=== PATIENT | female | born 1935 | race Caucasian/White ===

== ENCOUNTER 2016-12-28 01:17 | Inpatient (IN) | payer MEDICARE ==
[2016-12-28 02:00] LABS: #Basophils 0.1 thou/uL (0.0-0.2); #Eosinphils 0.2 thou/uL (0.0-0.7); #Lymphocytes 2.6 thou/uL (1.20-3.40); #Monocytes 0.6 thou/uL (0.11-0.59); %Basophils 1.4 % (0.0-1.0); %Eosinophils 2.7 % (0.0-10.0); %Lymphocytes 34.5 % (21.0-51.0); %Monocytes 8.3 % (0.0-10.0); Hematocrit 40.4 % (36.0-47.0); White Blood Cell (WBC) Count 7.5 thou/uL (4.8-10.8)
[2016-12-28 02:33] LABS: Troponin I Less than 0.010 ng/mL (< 0.028)
[2016-12-28 03:12] LABS: ALT (SGPT) 22 U/L (8-55); AST (SGOT) 41 U/L (5-34); Alkaline Phosphatase 77 U/L (40-150); Anion Gap 15 mmol/L (10-20); BUN (Urea Nitrogen) 15 mg/dL (9.8-20.1); Bilirubin, Total 0.2 mg/dL (0.2-1.2); CK (CPK) 75 U/L (29-168); Calc. Creatinine Clearance 0 mL/min (70-130); Calcium 9.7 mg/dL (7.8-10.44); Carbon Dioxide 22 mmol/L (23-31); Chloride 106 mmol/L (98-107); Estimated GFR-MDRD 59; Globulin 3.4 g/dL (2.4-3.5); Magnesium 2.6 mg/dL (1.6-2.6); Protein, Total 7.6 g/dL (6.0-8.3)
[2016-12-28] MEDS ORDERED: Ondansetron HCl/PF 4 MG/2 ML Vial IVP PRN (04:08)
[2016-12-28] MEDS ORDERED: Acetaminophen 325 MG TAB PO PRN (04:08)
[2016-12-28] MEDS ORDERED: Ondansetron ODT 4 MG TAB SL PRN (04:08)
[2016-12-28] MEDS ORDERED: Enoxaparin Sodium 60 MG/0.6 ML SYRINGE SC SCH (04:30)
[2016-12-28 05:09] LABS: Troponin I Less than 0.010 ng/mL (< 0.028)
[2016-12-28] MEDS ORDERED: Lorazepam 0.5 MG TAB PO PRN (05:40)
--- NOTE | 2016-12-28 05:40 | PDOC.EVN ---
Event Note - Event Note Event Note: [id number] H&P Dictated 1. Afib rvr 2. GERD 3. Hypothyroidism Plan: see orders
[2016-12-28 08:21] LABS: Troponin I 0.016 ng/mL (< 0.028)
[2016-12-28] MEDS ORDERED: FLU VACC TS2017-18 (>65YR) 0.5 ML SYRINGE IM ONE (09:00)
[2016-12-28] MEDS ORDERED: TOLTERODINE TARTRATE 2 MG PO SCH (09:00)
[2016-12-28] MEDS ORDERED: Fluticasone Propionate Nasal Spray 16 gm Bottle NASAL SCH (09:00)
[2016-12-28] MEDS ORDERED: Aspirin 325 MG TAB PO SCH (09:00)
[2016-12-28] MEDS: TROSPIUM 20 MG TABLET PO SCH ×2 (09:03→20:51)
[2016-12-28] MEDS: Thyroid,Pork 90 MG TAB PO SCH (09:03)
[2016-12-28] MEDS: Gabapentin 300 MG CAP PO SCH ×2 (09:04→20:51)
[2016-12-28] MEDS: Aspirin 325 MG TAB PO SCH (09:04)
--- NOTE | 2016-12-28 09:41 | RAD ---
RADIOGRAPH CHEST 1 VIEW: HISTORY: 81-year-old female with acute chest pain. FINDINGS: There are no air space densities, pulmonary edema, pneumothorax, or cardiomegaly. The lateral costo phrenic angles are sharp. IMPRESSION: No acute cardiopulmonary findings. cody [] POS: [facility]
--- NOTE | 2016-12-28 10:47 | PDOC.EVN ---
Event Note - Event Note Event Note: Patient seen and examined, has converted back to NSR. Ok to transfer to telemetry, defer anticoagulation to cardiology, [id number] likely indicative of needing anticoagulation vs antiplatelet, will await final input from cardio. Transfer to telemetry for now, no other changes in plan. Further management per consultants. Case and plan d/w patient at length, she understands and agrees with this plan.
--- NOTE | 2016-12-28 13:56 | HP ---
DATE OF ADMISSION: 12/28/2016 CHIEF COMPLAINT: Palpitations, chest pain. HISTORY OF PRESENT ILLNESS: The patient is an 81 years old female with past medical history of hypo thyroidism, GERD, came to the ER complaining of palpitations. The patient felt her heart beating to o fast and she felt chest pain and dizziness also as if she is going to pass out, chest pain is subs ternal tightness kind of pain, 7/10, currently resolved. No aggravating factors, no relieving facto rs. Also had some dyspnea and also had nausea, the whole symptoms lasted for a few minutes, the pat addie came to the ER. Upon ER arrival, the patient was found to be in atrial fibrillation with RVR w ith heart rate around 140, so patient was given IV Cardizem push and the Cardizem drip was started. The patient's chest pain did resolve at this time. Following EKG as the heart rate improved, showe d some questionable ST elevations. ED physician did speak to the occupational rehabilitation aide, Dr. Álvarez, who recomm ended admission and recommended low dose of Lovenox. The patient denies any chest pain at this time . Denies any other complaints. PAST MEDICAL HISTORY: As per HPI. PAST SURGICAL HISTORY: Hysterectomy. SOCIAL HISTORY: Denies smoking. Drinks of wine at nighttime. Denies any drugs. FAMILY HISTORY: Positive for heart problems. MEDICATIONS: Reviewed. ALLERGIES: CODEINE, SULFA. REVIEW OF SYSTEMS: Constitutional: Denies any fever, denies any chills. Eyes: Denies any vision problems. Ears: Denies any hearing loss. Neck: Denies any neck pain. Cardiovascular system: Po sitive for chest pain. Positive for palpitations. Respiratory system: Positive for dyspnea. Cran ial nerve system: Positive for dizziness. Psychiatric: Denies anxiety. Integumentary: Denies an y rash. Musculoskeletal: Denies any joint deformities. All other review of systems are reviewed a nd are negative. PHYSICAL EXAMINATION: CONSTITUTIONAL/VITAL SIGNS: At the time of H and P performed, blood pressure is 101/50, afebrile, p ulse rate is 70, respiratory rate 18, pulse ox 97% on room air. GENERAL: This patient appears comfortable. HEENT: Pupils equal, round, and reactive to light. Anterior nares patent. Teeth intact. Tongue i s moist. NECK: Supple. No JVD. CARDIOVASCULAR SYSTEM: S1, S2 present. Regular rate and rhythm, currently in sinus rhythm. No mur murs, no rubs, no gallops. RESPIRATORY SYSTEM: No wheezing, no rhonchi. Breath sounds bilaterally. GASTROINTESTINAL: Abdomen is soft, nontender, no guarding, no organomegaly, no masses felt. MUSCULOSKELETAL: No edema. INTEGUMENTARY: No obvious rashes seen. PSYCHIATRIC: Mood is appropriate at this time. LABORATORY DATA: At the time of H and P performed sodium 139, potassium 3.9, mag 2.6, BUN 15, creat inine 0.9. CK-MB 1.5, troponin less than 0.010. White count 7.5, hemoglobin 13.7, and platelet cou nt is 272. EKG: Positive for mild ST elevation seen in lead II and III. Chest x-ray no obvious in filtrates seen. ASSESSMENT AND PLAN: The patient is an 81 years old female. 1. Atrial fibrillation with rapid ventricular response, paroxysmal. The patient said she is having these symptoms and that is being seen by Dr. Constantino as an outpatient also. Currently, denies any p ain ar this time. Provide heart rate control. Continue Cardizem drip and patient to receive a dose of Lovenox. Continue Lovenox at home. We will consult Cardiology to evaluate the patient. 2. Chest pain, resolved. Plan to check cardiac enzymes, p.r.n. pain medications. 3. History of hypothyroidism. Continue home medication. 4. Nausea, p.r.n. antiemetics. 5. History of neuropathy. Continue gabapentin. 6. History of gastroesophageal reflux disease. Continue PPI. The case was discussed in detail with the patient. The patient is FULL CODE.
--- NOTE | 2016-12-28 20:00 | CON ---
DATE OF SERVICE: 12/28/2016 PRIMARY MERCHANDISE COMPLAINT ADJUSTER: Dr. Constantino. REFERRING PHYSICIAN: Dr. Arnold. REASON FOR CONSULTATION: Palpitations. HISTORY OF PRESENT ILLNESS: Ms. Wong is an 81-year-old female, who follows with Dr. Col mak, recently underwent stress testing and other cardiac workup, which was negative for evidence of obstructive coronary artery disease. She has recently \\\\"felt differently\\\\" and has been aware ranjeet t something may be wrong but could not put her finger on what it was. This prompted a cardiac evalu ation, which appeared to be negative with normal LV function and negative stress testing. She repor ts recent onset of unilateral eye dryness and visual changes that prompted an evaluation by her opht halmologist and evaluation showed possible evidence of recent TIA. She saw her primary care physici an, Dr. Edwards, who has ordered some testing for a more detailed workup. On presentation today to the emergency department, she was found to be in rapid atrial fibrillation with rates around 140 per minute. With rate control of her atrial fibrillation, her chest tightness that was present did resolve. There were some changes in her EKG. PAST MEDICAL HISTORY: 1. GERD. 2. Hypothyroidism. 3. Possible recent TIA. PAST SURGICAL HISTORY: Hysterectomy. ALLERGIES: CODEINE and SULFA. SOCIAL HISTORY: She denies tobacco use, ethanol abuse, illicit or recreational drug use. She does drink a glass of wine at night time. FAMILY HISTORY: Negative with respect to premature atherosclerosis. Her mother did have a history of atrial fibrillation and CVA. CURRENT MEDICATIONS: Include: 1. Aspirin 325 mg daily. 2. Dexilant 60 mg daily. 3. Flonase 1 spray each nostril daily. 4. Gabapentin 300 mg b.i.d. 5. Ophiem Thyroid 90 mg daily. 6. Ambien 10 mg at bedtime for insomnia. REVIEW OF SYSTEMS: As per the history of present illness. Remainder of 12 system review is negativ e. PHYSICAL EXAMINATION: VITAL SIGNS: Blood pressure 114/49, pulse 81 and regular, respiratory rate 18 and nonlabored, tempe rature 99.0, oxygen saturation 98% on room air. GENERAL: This is a well-developed, well-nourished 81-year-old female, in no acute distres s. She is alert and oriented x4. She answers questions appropriately. HEENT: Head was atraumatic, normocephalic. Pupils were equally round and reactive. Sclerae and co njunctivae are clear. There are no oral lesions. NECK: Supple, no JVD, thyromegaly, carotid bruits. CHEST: Symmetrical inspiration and expiration. HEART: Irregularly irregular with no murmur, S3, S4. PMI is nondisplaced, not enlarged. LUNGS: Clear to auscultation in all mitchell. No adventitious sounds appreciated. ABDOMEN: Soft, nontender, nondistended without mass or organomegaly. Bowel sounds are present in a ll 4 quadrants. No flank bruits auscultated. EXTREMITIES: 2+ pulses noted bilaterally in the upper and lower extremities, strength 5/5 bilateral ly. There is no clubbing, cyanosis or edema. NEUROLOGIC: Grossly intact. No focal motor deficits appreciated. DATABASE: EKG reveals atrial fibrillation with rapid ventricular response. LABORATORY DATA: CBC reveals a white count of 7, hemoglobin and hematocrit of 13 and 40, platelet c ount 272,000. Differential white blood cells normal. Red cell indices normocytic. Chemistries rev eal normal electrolytes, BUN and creatinine 15 and 0.9, GFR is estimated 59, glucose 142. LFTs are within normal limits. Serial cardiac enzymes were normal. Her TSH was normal. ASSESSMENT: 1. New onset atrial fibrillation with rapid ventricular response, currently rate controlled. 2. Recent transient ischemic attack. 3. Hypothyroidism, adequately replaced. 4. Gastroesophageal reflux disease, on therapy. RECOMMENDATIONS: 1. From a cardiac standpoint, she is stable, she is currently rate controlled. I would recommend X arelto 20 mg daily for stroke risk reduction as her CHADs score is 3 (age, recent TIA). 2. I will monitor her rhythm and defer to Dr. Constantino regarding his wishes for longer term therapy m edically versus more prompt electrophysiology evaluation for potential ablation therapy. I appreciate the opportunity to participate.
[2016-12-28] MEDS ORDERED: Zolpidem Tartrate 5 MG TAB PO SCH (21:00)
[2016-12-29 06:07] LABS: #Eosinphils 0.2 thou/uL (0.0-0.7); #Lymphocytes 1.3 thou/uL (1.20-3.40); #Monocytes 0.3 thou/uL (0.11-0.59); #Neutrophils 3.7 thou/uL (1.40-6.50); %Basophils 0.3 % (0.0-1.0); %Eosinophils 3.2 % (0.0-10.0); %Lymphocytes 23.8 % (21.0-51.0); Mean Platelet Volume 6.6 fL (7.4-10.4); Red Blood Cell (RBC) Count 3.39 mill/uL (4.20-5.40); White Blood Cell (WBC) Count 5.5 thou/uL (4.8-10.8)
[2016-12-29 06:10] LABS: Hematocrit 33.7 % (36.0-47.0)
[2016-12-29 06:25] VITALS: BMI 24.1
[2016-12-29 06:36] LABS: Anion Gap 12 mmol/L (10-20); BUN (Urea Nitrogen) 17 mg/dL (9.8-20.1); Calc. Creatinine Clearance 67 mL/min (70-130); Carbon Dioxide 23 mmol/L (23-31); Chloride 108 mmol/L (98-107); Estimated GFR-MDRD 85
[2016-12-29] MEDS: TROSPIUM 20 MG TABLET PO SCH ×2 (09:40→09:41)
[2016-12-29] MEDS: Gabapentin 300 MG CAP PO SCH (09:40)
[2016-12-29] MEDS: Aspirin 325 MG TAB PO SCH (09:40)
[2016-12-29] MEDS: Thyroid,Pork 90 MG TAB PO SCH (10:05)
[2016-12-29 11:08] VITALS: TEMP 97.9
[2016-12-29 11:13] VITALS: BP 104/54
--- NOTE | 2016-12-29 11:30 | PDOC.PN ---
- Subjective Encounter Start Date: 12/29/16 Encounter Start Time: 11:27 Ms. Wong does not have any complaints. She denies chest pain or shortness of breath. - Objective MAR Reviewed: Yes Vital Signs & Weight: Vital Signs (12 hours) Temp Pulse Resp BP BP Pulse Ox 12/29/16 08:00 97.9 F 71 16 104/54 L 96 12/29/16 03:54 98.3 F 68 20 114/56 L 94 L Weight Weight 140 lb 8 oz I&O: 12/28/16 12/29/16 12/30/16 06:59 06:59 06:59 Intake Total 50 530 Output Total 800 Balance 50 -270 Result Diagrams: 12/29/16 05:32 12/29/16 05:32 Phys Exam - Physical Examination HEENT: PERRLA Respiratory: no wheezing, no rales, no rhonchi, clear to auscultation bilateral Cardiovascular: RRR, no significant murmur Gastrointestinal: soft, non-tender, positive bowel sounds Musculoskeletal: no edema Dx/Plan (1) Atrial fibrillation Code(s): I48.91 - UNSPECIFIED ATRIAL FIBRILLATION Status: Acute (2) Hypothyroidism Code(s): E03.9 - HYPOTHYROIDISM, UNSPECIFIED Status: Acute - Plan * AFIB- she has converted to sinus * Hypothyroidism- he is clinically euthyroid * Awaiting recommendation from Dr. Constantino..
--- NOTE | 2016-12-29 13:25 | PDOC.CTH ---
Cardiology Progress Note - Subjective She is doing better. Feels back to normal. - Objective Vital Signs Temp Pulse Resp BP BP Pulse Ox 12/29/16 08:00 97.9 F 71 16 104/54 L 96 12/29/16 03:54 98.3 F 68 20 114/56 L 94 L Weight 140 lb 8 oz 12/28/16 12/29/16 12/30/16 06:59 06:59 06:59 Intake Total 50 530 Output Total 800 Balance 50 -270 - Physical Examination General/Neuro: alert & oriented x3, NAD Neck: no JVD present Lungs: CTA, unlabored respirations Heart: RRR Abdomen: NT/ND Extremities: other: (no edema) - Telemetry Telemetry Rhythm: NSR - Labs Result Diagrams: 12/29/16 05:32 12/29/16 05:32 Troponin/CKMB CK-MB (CK-2) 1.5 ng/mL (0-6.6) 12/28/16 01:45 Troponin I 0.016 ng/mL (< 0.028) 12/28/16 07:42 - Assessment/Plan 1. Proxysmal afib 2. Normal LV function. 3. TIA recently PLAN: - Will start on flecainide and low dose BB. - Gave her choice of anticoagulants she picks Eliquis as her is taking this and feels comfortable with it. - Will start Eliquis 2.5 mg BID due to her age and weight. - She may be discharged home from cardiac perspective. - Follow up in 1 month with pre clinic CBC, BMP. - Negative PET scan 2 months ago.
--- NOTE | 2016-12-29 14:55 | DIS ---
DATE OF ADMISISON: 12/28/2016 DATE OF DISCHARGE: 12/29/2016 PRIMARY CARE PHYSICIAN: Dr. Michael Ham. DISCHARGE DISPOSITION: Home. PRIMARY DISCHARGE DIAGNOSES: 1. Atrial fibrillation with rapid ventricular response. 2. History of hypothyroidism. DISCHARGE MEDICATIONS: Include Eliquis 2.5 mg twice daily, aspirin 81 mg daily, Dexilant 60 mg ernestine y, Flonase nasal spray 1 spray in each naris daily, gabapentin 300 mg twice daily, lorazepam 0.5 mg as needed, metoprolol 12.5 mg twice a day, [place] Thyroid 60 mg daily, Zolpidem 10 mg at bedtime, To lterodine 2 mg twice a day as well flecainide 50 mg twice a day. CODE STATUS: FULL CODE. ALLERGIES: SULFA and CODEINE. HOSPITAL COURSE: Ms. Wong is a pleasant 81-year-old female that presented to the emergency room w ith complaints of palpitations and some chest pain. She was found to be in atrial fibrillation with rapid ventricular response. She was placed on a Cardizem drip, admitted and she converted back to sinus rhythm. She was seen by Dr. Constantino, her crank hand who recommended placing her on flecainid e as well as a low dose of metoprolol and Eliquis as her CHADS-VASc score was approximately 3. She had an uneventful hospital course and was subsequently able to be discharged home on 12/29/2016 and to follow up with Dr. Constantino in approximately one month.
[2016-12-29] MEDS ORDERED: Fluticasone Propionate Nasal Spray 16 gm Bottle NASAL SCH (21:00)
[2016-12-29] MEDS ORDERED: Metoprolol Tartrate 25 MG TAB PO SCH (21:00)
[2016-12-29] MEDS ORDERED: Apixaban 5 MG TAB PO SCH (21:00)
== END 2016-12-29 15:38 | disposition home or self-care (01) | DRG 310 ==
LOC: ERS 01:17 → IMCU/EMU 02:47 → 2NO 13:35
PROVIDERS: ADMIT Internal Medicine; ATTEND Internal Medicine
DX: I48.0 Paroxysmal atrial fibrillation (principal); G62.9 Polyneuropathy, unspecified; E03.9 Hypothyroidism, unspecified; K21.9 Gastro-esophageal reflux disease without esophagitis; Z88.5 Allergy status to narcotic agent; Z88.2 Allergy status to sulfonamides; Z79.01 Long term (current) use of anticoagulants; Z79.82 Long term (current) use of aspirin; Z86.73 Personal history of transient ischemic attack (TIA), and cerebral infarction without residual deficits
CPT/HCPCS: 36415; 71010; 80048; 80053; 82553; 83735; 84443; 84484; 85025; 90471; 90682; 93005; 96365; 96376; G0008; J7050; Q2036

== ENCOUNTER 2017-02-24 12:00 | Inpatient (IN) | payer MEDICARE ==
[2017-02-24 12:39] VITALS: BMI 23.1
[2017-02-27] MEDS ORDERED: Midazolam HCl 2 mg/2 ml Vial ONE ×2 (09:26→09:44)
[2017-02-27] MEDS ORDERED: Fentanyl 100 MCG/2 ML VIAL ONE ×3 (09:26→09:55)
[2017-02-27] MEDS ORDERED: Tranexamic Acid 1,000 MG/100 ML BAG ONE ×2 (09:30→12:26)
[2017-02-27] MEDS ORDERED: CEFAZOLIN/Water 2 GM/20 ML SYRINGE ONE (09:30)
[2017-02-27] MEDS ORDERED: Promethazine HCl 25 MG/ML VIAL IM PRN ×2 (09:33→12:28)
[2017-02-27] MEDS ORDERED: Ropivacaine HCl/PF 250 ML in Premix Bag 1 BAG NERVE BLCK SCH (09:33)
[2017-02-27] MEDS ORDERED: Ondansetron HCl/PF 4 MG/2 ML Vial IVP PRN ×2 (09:33→12:28)
[2017-02-27] MEDS ORDERED: HYDROcodone/Acetaminophen 10/325 mg Tablet PO PRN (09:33)
[2017-02-27] MEDS ORDERED: Fentanyl 100 MCG/2 ML VIAL IV PRN (09:33)
[2017-02-27] MEDS ORDERED: Zolpidem Tartrate 5 MG TAB PO PRN (09:33)
[2017-02-27] MEDS ORDERED: traMADol HCl 50 MG TAB PO PRN ×2 (09:33→12:28)
[2017-02-27] MEDS ORDERED: Acetaminophen 325 MG TAB PO PRN (12:28)
[2017-02-27] MEDS ORDERED: diphenhydrAMINE 25 MG CAP PO PRN (12:28)
[2017-02-27] MEDS ORDERED: Fentanyl 100 MCG/2 ML VIAL SLOW IVP PRN (12:28)
[2017-02-27] MEDS ORDERED: Tranexamic Acid 1,000 MG in Sodium Chloride 0.9% 100 ML IVPB SCH (12:30)
[2017-02-27] MEDS ORDERED: Fluticasone Propionate Nasal Spray 16 gm Bottle NASAL PRN (12:32)
[2017-02-27] MEDS ORDERED: Lorazepam 0.5 MG TAB PO PRN (12:32)
--- NOTE | 2017-02-27 12:52 | RAD ---
LEFT KNEE TWO VIEW: History: Total post op knee. FINDINGS: Satisfactory appearance of the total left knee arthroplasty with total resurfacing. No hardware compl ication. IMPRESSION: Satisfactory appearance of left total knee arthroplasty. POS: [facility]
[2017-02-27] MEDS: Ketorolac Tromethamine 30 MG/ML VIAL IVP SCH ×3 (13:47→23:04)
[2017-02-27] MEDS: CEFAZOLIN/Water 2 GM/20 ML SYRINGE SLOW IVP SCH (17:30)
[2017-02-27] MEDS ORDERED: hydrALAZINE 20 MG/ML VIAL SLOW IVP PRN (18:03)
[2017-02-27] MEDS: Sodium Chloride 0.9% 1,000 ML IV SCH ×2 (19:28→21:31)
--- NOTE | 2017-02-27 19:44 | OP ---
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 OPERATIVE PROCEDURE: Revision left total knee arthroplasty (conversion from unicompartmental arthrop lasty to primary total knee arthroplasty) cemented computer-assisted navigated. SURGEON: Anup Graves M.D. BRAIN WAVE TECHNICIAN: Sadiq Bedoya PA-C. ANESTHESIA: General via laryngeal mask airway augmented with indwelling femoral block and a single s hot sciatic block. COMPONENTS USED: QUIQs Triathlon cruciate retaining size 4 cemented femoral component with a size 3 cemented primary tibial baseplate, A29 patellar button and a 9 mm polyethylene fixed b earing insert. TOURNIQUET TIME: 68 minutes at 300 mmHg. FINDINGS: Diffuse polyethylene wear primarily on the tibial implant, periarticular osteophyte format ion, serous effusions, nodular synovitis with hemosiderin staining diffusely. DRAINS: None. SPECIMENS: None. COMPLICATIONS: None. COUNTS: Correct. INDICATIONS FOR SURGERY: Lilia is an 81-year-old white female who has had progressive left knee pain amplified with standing and walking for the last 10 years. She had a unicompartmental medial compar tment arthroplasty performed approximately 12-15 years ago and at this point the arthroplasty has shankar led due to excessive tibial poly wear. PROCEDURE IN DETAIL: After informed consent was obtained in the preoperative holding area, the patie nt was taken to the operative suite and positioned appropriately on the operating table. Left knee w as then prepped and draped in the usual sterile fashion. Tourniquet was placed over the left proxima l thigh and the patient received preoperative antibiotics. Prior to exsanguination, timeout was call ed and all members of surgical team agreed on site, surgeon, and patient. After this was completed, the extremity was then exsanguinated using an Esmarch and the tourniquet was raised to 300 mmHg where it remained for the remainder of the case. A medial parapatellar arthrotomy was then performed usin g the patient's existing incision that was opened in the flexed position. The full arthrotomy and qu ad splitting approach was used. The joint was then encountered. The inferior joint line was then ex posed with blunt dissection and a combination of Bovie electrocautery. A full fat pad ectomy was car ried out. We then used navigation to obtain mechanical axis. Primary cut was used to oscillating sa w in the lateral compartment of the distal femur. We then used osteotomes and saw as a combination t o remove the distal femoral arthroplasty, which was metallic and cemented. Once this was completed, we then turned attention to the femoral sizing with the posterior referencing guide. The 4-in-1 cutt ing guide was then added and the anterior posterior chamfers and anterior and posterior cuts were the n made and completed with osteotomes. The posterior compartment was then completely inspected. Atte ntion was then turned to the tibial preparation. We navigated the tibia as well for total resection of about 7 mm. We then completed this with the curettage to clean out all the plastic and leftover c ement from the tibial baseplate. There are significant wear patterns on it, but did not appear to be loose after tibial preparation baseplate was then sized to be a 3. This temporary baseplate was the n malleted in place and pinned firmly. We trialed after posterior compartment periarticular osteophy tectomies were performed and the PCL was decompressed as well. Happy with finish and full range of m otion and symmetric flexion and extension gaps. We then used the oscillating saw to resect the ponce la intraarticular facets. The patella was A29 button. This was also trialled through full range of motion, it was stable to varus and valgus stressing and posterior and anterior drawer. PCL was reces sed slightly to allow for full extension. Happy with the trials, we then cleaned off the bone meticu lously and added cement beginning with the tibia, which was then malleted into place. The polyethyle ne fixed bearing insert was inserted and the femur was then applied. Leg was placed into extension. All excess cement was curettaged and removed with a [place] elevator and curettage. The patellar butt on was then added. Excess cement was removed. There was also allowed to cure. The wound was then c opiously irrigated with normal saline. Primary closure was accomplished with #2 running Quill stitch to close the arthrotomy and quad tendon split. The subcutaneous layer was then closed with running 0 Quill and subcuticular 3-0 Quill was then placed in the skin and reinforced the cement. Sterile dr farheen was applied. Tourniquet was dropped and the patient had good distal pulses and good pink capi llary refill less than 3 seconds in all digits. Sterile dressing was applied. The procedure was ter minated without any complications and the patient was taken to recovery room in stable condition.
[2017-02-27] MEDS: Senokot S 8.6-50 MG TAB PO SCH (20:35)
[2017-02-27] MEDS: Gabapentin 300 MG CAP PO SCH (20:36)
[2017-02-27] MEDS: Ferrous Gluconate 324 MG TAB PO SCH (20:36)
[2017-02-27] MEDS ORDERED: Aspirin 325 MG TAB PO SCH (21:00)
[2017-02-27] MEDS: Zolpidem Tartrate 5 MG TAB PO PRN (22:58)
--- NOTE | 2017-02-28 00:06 | CON ---
DATE OF CONSULTATION: 02/27/2017 CONSULTING PHYSICIAN: Dr. Anup Graves. REASON FOR ADMISSION: Left total knee arthroplasty. REASON FOR CONSULTATION: Medical management. BRIEF HOSPITAL COURSE: This is an 81-year-old pleasant lady, who was apparently in usual state of he alth came into the hospital for left total knee arthroplasty. She has been admitted for observation post procedure. Right now, pain control is good. I have been consulted for medical management and t o evaluate her for medical management. She has a history of hypothyroidism, GERD, and atrial fibrill ation. The patient right now says the pain control is adequate. She is going to eat her dinner, she is comfortable. She is breathing well. No nausea, no vomiting, no fever, no chills. PAST MEDICAL HISTORY: Significant for paroxysmal atrial fibrillation, vague history of TIA, hypothyr oidism, hypertension, GERD. She was admitted to the hospital last time with atrial fibrillation in , at which point, she was seen by our cardiologists by Dr. Ankush Tellez and Dr. Constantino who had actually was 3 and put her on flecainide, metoprolol for rate control and Eliquis for anticoagu lation. She has been taking all these medications, but right now the PCP is trying to arrange for an other injector assembler of choice. PAST SURGICAL HISTORY: Significant for hysterectomy. ALLERGIES: CODEINE, SULFA. SOCIAL HISTORY: Does not smoke, or do recreational drugs. Drinks occasional glass of wine. MEDICATIONS: Please see MAR. FAMILY HISTORY: Negative for diabetes and hypertension. REVIEW OF SYSTEMS: Significant for no fever, no chills, no headache, no eye pain, no hearing loss, n o appetite, no latencies. No cough, no chest pain, diarrhea, dysuria, or polyuria. No memory or moo d changes. No neck pain. Left leg that is sore at the site of surgery. PHYSICAL EXAMINATION: VITAL SIGNS: Patient is afebrile, pulse is 54, blood pressure is 157/76, breathing comfortably on ro om air. GENERAL: Patient is lying in bed in no apparent distress. HEENT: Atraumatic, normocephalic. Pupils are equal, round, react to light. Extraocular movements i ntact. Mucous membranes moist. NECK: Supple. No JVD. CHEST: Breath sounds heard. No rales or rhonchi. HEART: S1, S2. No murmurs or gallops. ABDOMEN: Soft. EXTREMITIES: Left leg in dressing, otherwise right leg, there are no cyanosis, clubbing, edema. Dis lisa pulses present. NEUROLOGIC: Alert, awake, oriented. No cranial deficits. No sensorimotor deficits. LABORATORY DATA: Potassium is 3.6, creatinine is 0.7. X-ray shows left knee arthroplasty. WBC is 4 .3, hemoglobin is 13. ASSESSMENT AND PLAN: 1. Status post left knee arthroplasty, pain management, follow Primary is planned. 2. Proximal atrial fibrillation. Right now patient appears to be in sinus. The patient continued f lecainide. Hold metoprolol because of the bradycardia and we will restart Eliquis when okay with Ormaya jade. 3. Hypothyroidism. We will start her back on her [place] Thyroid. 4. Hypertension. We will continue p.r.n. medications for now and monitor pulse rate. 5. Gastroesophageal reflux disease stable. 6. We will do Lovenox for deep venous thrombosis prophylaxis. Work with primary and further caring for the patient. Thanks, Dr. Graves in letting me participate in this patient's care.
[2017-02-28] MEDS: CEFAZOLIN/Water 2 GM/20 ML SYRINGE SLOW IVP SCH (01:59)
[2017-02-28] MEDS: Zolpidem Tartrate 5 MG TAB PO PRN ×3 (02:25→23:16)
[2017-02-28 05:32] LABS: Hematocrit 34.8 % (36.0-47.0); Mean Platelet Volume 7.5 fL (7.4-10.4); Red Blood Cell (RBC) Count 3.41 mill/uL (4.20-5.40); White Blood Cell (WBC) Count 7.2 thou/uL (4.8-10.8)
[2017-02-28] MEDS: Ketorolac Tromethamine 30 MG/ML VIAL IVP SCH ×4 (05:35→23:16)
[2017-02-28] MEDS: traMADol HCl 50 MG TAB PO PRN ×2 (07:45→08:42)
[2017-02-28] MEDS: Senokot S 8.6-50 MG TAB PO SCH ×2 (07:46→21:08)
[2017-02-28] MEDS: Multivitamin W/ Minerals 1 TAB PO SCH (07:46)
[2017-02-28] MEDS: Ferrous Gluconate 324 MG TAB PO SCH ×2 (07:46→21:06)
[2017-02-28] MEDS: Enoxaparin Sodium 30 MG/0.3 ML SYRINGE SC SCH (07:48)
[2017-02-28] MEDS: Aspirin 81 mg Enteric Coated Tablet PO SCH (07:48)
[2017-02-28] MEDS: Sodium Chloride 0.9% 1,000 ML IV SCH ×2 (07:53→19:24)
[2017-02-28] MEDS ORDERED: COMPOUNDED HORMONE PO SCH (09:00)
[2017-02-28] MEDS: Thyroid,Pork 90 MG TAB PO SCH (10:22)
[2017-02-28] MEDS: HYDROcodone/Acetaminophen 10/325 mg Tablet PO PRN ×2 (10:22→21:27)
--- NOTE | 2017-02-28 12:02 | PDOC.PN ---
- Subjective Encounter Start Date: 02/28/17 Encounter Start Time: 10:00 Subjective: pain is controlled on current nerve block -: no palp or chest pain - Objective MAR Reviewed: Yes Vital Signs & Weight: Vital Signs (12 hours) Temp Pulse Resp BP Pulse Ox 02/28/17 08:00 97.3 F L 66 14 121/62 93 L 02/28/17 07:45 97.3 F L 66 14 93 L 02/28/17 04:37 67 18 135/67 Weight Admit Weight 135 lb Weight 135 lb I&O: 02/27/17 02/28/17 03/01/17 06:59 06:59 06:59 Intake Total 2040 Output Total 1650 Balance 390 Result Diagrams: 02/28/17 05:14 Phys Exam - Physical Examination HEENT: PERRLA, moist MMs Neck: no JVD, supple Respiratory: no wheezing, no rales Cardiovascular: RRR, no significant murmur Gastrointestinal: soft, non-tender, positive bowel sounds Musculoskeletal: no edema, pulses present left knee in dressing Neurological: non-focal, moves all 4 limbs Psychiatric: A&O x 3 Dx/Plan (1) Status post total knee replacement, left Code(s): Z96.652 - PRESENCE OF LEFT ARTIFICIAL KNEE JOINT Status: Acute Comment: 02/27/2017 (2) Atrial fibrillation Code(s): I48.91 - UNSPECIFIED ATRIAL FIBRILLATION Status: Chronic Comment: currently in sinus (3) Hypothyroidism Code(s): E03.9 - HYPOTHYROIDISM, UNSPECIFIED Status: Chronic Qualifiers: Hypothyroidism type: unspecified Qualified Code(s): E03.9 - Hypothyroidism , unspecified (4) GERD (gastroesophageal reflux disease) Code(s): K21.9 - GASTRO-ESOPHAGEAL REFLUX DISEASE WITHOUT ESOPHAGITIS Status: Chronic Qualifiers: Esophagitis presence: esophagitis presence not specified Qualified Code(s) : K21.9 - Gastro-esophageal reflux disease without esophagitis - Plan is on flecainide, oral iron -: lovenox for dvt prophylaxis -: fentanyl, norco and toradol prn, has ropivacaine nr block -: will f/u -: post op Hb is 11g and stable * . Review of Systems - Medications/Allergies Allergies/Adverse Reactions: Allergies Allergy/AdvReac Type Severity Reaction Status Date / Time codeine Allergy Verified 02/24/17 12:40 Sulfa (Sulfonamide Allergy Verified 02/24/17 12:40 Antibiotics) Medications: Current Medications Acetaminophen (Tylenol) 650 mg PO Q4H PRN PRN Reason: HERNANDEZ/ T > 101F; Mild Pain (1-3) Hydrocodone Bitart/Acetaminophen ([place] 10/325) 1 tab PO Q4H PRN PRN Reason: Pain (1-3) Hydrocodone Bitart/Acetaminophen ([place] 10/325) 2 tab PO Q4H PRN PRN Reason: PAIN (4-6) Last Admin: 02/28/17 10:22 Dose: 2 tab Aspirin (Ecotrin) 81 mg PO DAILY [facility] Last Admin: 02/28/17 07:48 Dose: 81 mg Diphenhydramine HCl (Benadryl) 25 mg PO Q6H PRN PRN Reason: Itching Enoxaparin Sodium (Lovenox) 30 mg SC 0900 [facility] Last Admin: 02/28/17 07:48 Dose: 30 mg Fentanyl (Sublimaze) 50 mcg IV Q1H PRN PRN Reason: BREAKTHROUGH PAIN Fentanyl (Sublimaze) 100 mcg SLOW IVP Q1H PRN PRN Reason: Severe Pain (7-10) Ferrous Gluconate (Fergon) 324 mg PO BID [facility] Last Admin: 02/28/17 07:46 Dose: 324 mg Flecainide Acetate (Tambocor) 50 mg PO Q12HR [facility] Last Admin: 02/28/17 10:22 Dose: 50 mg Fluticasone Propionate (Flonase Nasal [place]) 0 gm NASAL DAILYPRN PRN PRN Reason: Allergies Gabapentin (Neurontin) 600 mg PO HS [facility] Last Admin: 02/27/17 20:36 Dose: 600 mg Hydralazine HCl (Apresoline) 10 mg SLOW IVP Q4H PRN PRN Reason: SBP Greater Than 180 Ropivacaine 250 ml/ Device 250 mls @ 0 mls/hr NERVE BLCK INF [facility] PRN Reason: As Directed Sodium Chloride (Normal Saline 0.9%) 1,000 mls @ 100 mls/hr IV .Q10H [facility] Last Admin: 02/28/17 07:53 Dose: Not Given Iron/Minerals/Multivitamins (Theragran M) 1 tab PO DAILY [facility] Last Admin: 02/28/17 07:46 Dose: 1 tab Ketorolac Tromethamine (Toradol) 15 mg IVP Q6HR [facility] Stop: 03/01/17 06:01 Last Admin: 02/28/17 05:35 Dose: 15 mg Lorazepam (Ativan) 0.5 mg PO DAILYPRN PRN PRN Reason: Anxiety Ondansetron HCl (Zofran) 4 mg IVP Q6H PRN PRN Reason: Nausea/Vomiting Pantoprazole Sodium (Protonix) 40 mg PO HS [facility] Last Admin: 02/27/17 20:36 Dose: 40 mg Promethazine HCl (Phenergan) 12.5 mg IM Q4H PRN PRN Reason: Nausea/Vomiting Senna/Docusate Sodium (Senokot S) 2 tab PO BID [facility] Last Admin: 02/28/17 07:46 Dose: 2 tab Sodium Chloride (Flush - Normal Saline) 10 ml IVF PRN PRN PRN Reason: Saline Flush Last Admin: 02/27/17 22:58 Dose: 10 ml Thyroid ([place] Thyroid) 90 mg PO QAM [facility] Last Admin: 02/28/17 10:22 Dose: 90 mg Tramadol HCl (Ultram) 50 mg PO Q6H PRN PRN Reason: Mild Pain (1-3) Last Admin: 02/28/17 08:42 Dose: 50 mg Tramadol HCl (Ultram) 100 mg PO Q6H PRN PRN Reason: Mild Pain (1-3) Zolpidem Tartrate (Ambien) 5 mg PO HSPRN PRN PRN Reason: Insomnia Last Admin: 02/28/17 02:25 Dose: 5 mg
[2017-02-28] MEDS: Gabapentin 300 MG CAP PO SCH (21:07)
[2017-03-01] MEDS: Sodium Chloride 0.9% 1,000 ML IV SCH ×2 (05:28→13:56)
[2017-03-01 05:39] LABS: Hematocrit 30.7 % (36.0-47.0); Mean Platelet Volume 6.2 fL (7.4-10.4); Red Blood Cell (RBC) Count 3.03 mill/uL (4.20-5.40); White Blood Cell (WBC) Count 5.9 thou/uL (4.8-10.8)
[2017-03-01] MEDS: Ketorolac Tromethamine 30 MG/ML VIAL IVP SCH (06:56)
[2017-03-01] MEDS ORDERED: Zolpidem Tartrate 5 MG TAB PO PRN (08:32)
[2017-03-01] MEDS ORDERED: Polyethylene Glycol 3350 17 GM Packet PO PRN (08:33)
[2017-03-01] MEDS: HYDROcodone/Acetaminophen 10/325 mg Tablet PO PRN (09:10)
[2017-03-01] MEDS: Aspirin 81 mg Enteric Coated Tablet PO SCH (09:13)
[2017-03-01] MEDS: Ferrous Gluconate 324 MG TAB PO SCH (09:13)
[2017-03-01] MEDS: Enoxaparin Sodium 30 MG/0.3 ML SYRINGE SC SCH (09:13)
[2017-03-01] MEDS: Senokot S 8.6-50 MG TAB PO SCH (09:13)
[2017-03-01] MEDS: Thyroid,Pork 90 MG TAB PO SCH (09:14)
[2017-03-01] MEDS: Multivitamin W/ Minerals 1 TAB PO SCH (09:14)
--- NOTE | 2017-03-01 12:11 | PDOC.PN ---
- Subjective Encounter Start Date: 03/01/17 Encounter Start Time: 10:00 Subjective: no sob or palp -: is amb and working with PT, says she walked in hallway - Objective MAR Reviewed: Yes Vital Signs & Weight: Vital Signs (12 hours) Temp Pulse Resp BP Pulse Ox 03/01/17 07:35 98.6 F 70 14 118/65 92 L 03/01/17 04:00 98.3 F 70 15 124/68 94 L Weight Admit Weight 135 lb Weight 135 lb I&O: 02/28/17 03/01/17 03/02/17 06:59 06:59 06:59 Intake Total 0 1880 Output Total 1650 700 900 Balance 390 1180 -900 Result Diagrams: 03/01/17 05:21 Phys Exam - Physical Examination HEENT: PERRLA, moist MMs Neck: no JVD, supple Respiratory: no wheezing, no rales Cardiovascular: RRR, no significant murmur Gastrointestinal: soft, non-tender, positive bowel sounds Musculoskeletal: no edema, pulses present left knee in dressing Neurological: non-focal, moves all 4 limbs Psychiatric: A&O x 3 Dx/Plan (1) Status post total knee replacement, left Code(s): Z96.652 - PRESENCE OF LEFT ARTIFICIAL KNEE JOINT Status: Acute Comment: 02/27/2017 (2) Atrial fibrillation Code(s): I48.91 - UNSPECIFIED ATRIAL FIBRILLATION Status: Chronic Comment: currently in sinus (3) Hypothyroidism Code(s): E03.9 - HYPOTHYROIDISM, UNSPECIFIED Status: Chronic Qualifiers: Hypothyroidism type: unspecified Qualified Code(s): E03.9 - Hypothyroidism , unspecified (4) GERD (gastroesophageal reflux disease) Code(s): K21.9 - GASTRO-ESOPHAGEAL REFLUX DISEASE WITHOUT ESOPHAGITIS Status: Chronic Qualifiers: Esophagitis presence: esophagitis presence not specified Qualified Code(s) : K21.9 - Gastro-esophageal reflux disease without esophagitis - Plan continue tambocor and asp, pt in sinus rhythm -: may dc iv fluids when she is off nerve block/per ortho advice -: is on fentanyl, ultram and norco prn -: will f/u, cbc is stable * . Review of Systems - Medications/Allergies Allergies/Adverse Reactions: Allergies Allergy/AdvReac Type Severity Reaction Status Date / Time codeine Allergy Verified 02/24/17 12:40 Sulfa (Sulfonamide Allergy Verified 02/24/17 12:40 Antibiotics) Medications: Current Medications Acetaminophen (Tylenol) 650 mg PO Q4H PRN PRN Reason: HERNANDEZ/ T > 101F; Mild Pain (1-3) Hydrocodone Bitart/Acetaminophen ([place] 10/325) 1 tab PO Q4H PRN PRN Reason: Pain (1-3) Hydrocodone Bitart/Acetaminophen ([place] 10/325) 2 tab PO Q4H PRN PRN Reason: PAIN (4-6) Last Admin: 03/01/17 09:10 Dose: 2 tab Aspirin (Ecotrin) 81 mg PO DAILY [facility] Last Admin: 03/01/17 09:13 Dose: 81 mg Diphenhydramine HCl (Benadryl) 25 mg PO Q6H PRN PRN Reason: Itching Enoxaparin Sodium (Lovenox) 30 mg SC 0900 [facility] Last Admin: 03/01/17 09:13 Dose: 30 mg Fentanyl (Sublimaze) 50 mcg IV Q1H PRN PRN Reason: BREAKTHROUGH PAIN Fentanyl (Sublimaze) 100 mcg SLOW IVP Q1H PRN PRN Reason: Severe Pain (7-10) Ferrous Gluconate (Fergon) 324 mg PO BID [facility] Last Admin: 03/01/17 09:13 Dose: 324 mg Flecainide Acetate (Tambocor) 50 mg PO Q12HR [facility] Last Admin: 03/01/17 09:14 Dose: 50 mg Fluticasone Propionate (Flonase Nasal [place]) 0 gm NASAL DAILYPRN PRN PRN Reason: Allergies Gabapentin (Neurontin) 600 mg PO HS [facility] Last Admin: 02/28/17 21:07 Dose: 600 mg Hydralazine HCl (Apresoline) 10 mg SLOW IVP Q4H PRN PRN Reason: SBP Greater Than 180 Ropivacaine 250 ml/ Device 250 mls @ 0 mls/hr NERVE BLCK INF [facility] PRN Reason: As Directed Last Admin: 02/28/17 17:30 Dose: 250 mls Sodium Chloride (Normal Saline 0.9%) 1,000 mls @ 100 mls/hr IV .Q10H [facility] Last Admin: 03/01/17 05:28 Dose: Not Given Iron/Minerals/Multivitamins (Theragran M) 1 tab PO DAILY [facility] Last Admin: 03/01/17 09:14 Dose: 1 tab Lorazepam (Ativan) 0.5 mg PO DAILYPRN PRN PRN Reason: Anxiety Ondansetron HCl (Zofran) 4 mg IVP Q6H PRN PRN Reason: Nausea/Vomiting Pantoprazole Sodium (Protonix) 40 mg PO HS [facility] Last Admin: 02/28/17 21:07 Dose: 40 mg Polyethylene Glycol (Miralax) 17 gm PO DAILYPRN PRN PRN Reason: Constipation Last Admin: 03/01/17 09:26 Dose: 17 gm Promethazine HCl (Phenergan) 12.5 mg IM Q4H PRN PRN Reason: Nausea/Vomiting Senna/Docusate Sodium (Senokot S) 2 tab PO BID [facility] Last Admin: 03/01/17 09:13 Dose: 2 tab Sodium Chloride (Flush - Normal Saline) 10 ml IVF PRN PRN PRN Reason: Saline Flush Last Admin: 03/01/17 09:15 Dose: 10 ml Thyroid ([place] Thyroid) 90 mg PO QAM [facility] Last Admin: 03/01/17 09:14 Dose: 90 mg Tramadol HCl (Ultram) 50 mg PO Q6H PRN PRN Reason: Mild Pain (1-3) Last Admin: 02/28/17 08:42 Dose: 50 mg Tramadol HCl (Ultram) 100 mg PO Q6H PRN PRN Reason: Mild Pain (1-3) Zolpidem Tartrate (Ambien) 10 mg PO HSPRN PRN PRN Reason: Insomnia
[2017-03-01 17:08] VITALS: BP 120/74; TEMP 97.3
== END 2017-03-01 18:00 | disposition home health service (06) | DRG 468 ==
LOC: SURG A 02-27 08:26
PROVIDERS: ADMIT Orthopaedic Surgery; ATTEND Orthopaedic Surgery
PROC: 0SRD0J9 Replacement of Left Knee Joint with Synthetic Substitute, Cemented, Open Approach (ICD-10-PCS; principal; 2017-02-27)
PROC: 0SPD0JZ Removal of Synthetic Substitute from Left Knee Joint, Open Approach (ICD-10-PCS; 2017-02-27)
PROC: 3E0T3BZ Introduction of Anesthetic Agent into Peripheral Nerves and Plexi, Percutaneous Approach (ICD-10-PCS; 2017-02-27)
DX: T84.093A Other mechanical complication of internal left knee prosthesis, initial encounter (principal); I48.0 Paroxysmal atrial fibrillation; I10 Essential (primary) hypertension; M17.12 Unilateral primary osteoarthritis, left knee; E03.9 Hypothyroidism, unspecified; K21.9 Gastro-esophageal reflux disease without esophagitis; Z88.2 Allergy status to sulfonamides; Z88.5 Allergy status to narcotic agent; Y83.8 Other surgical procedures as the cause of abnormal reaction of the patient, or of later complication, without mention of misadventure at the time of the procedure; Y92.234 Operating room of hospital as the place of occurrence of the external cause
CPT/HCPCS: 36415; 71020; 80048; 81001; 85025; 85027; 85610; 85730; 86850; 86900; 86901; 87081; 93005; 93010; C1713; C1776; G8978-GP-CK; G8979-GP-CI; J1650; J1885; J2250; J2795; J3010; J3370

== ENCOUNTER 2017-02-24 13:08 | Outpatient (CLI) | payer MEDICARE ==
[2017-02-24 14:25] LABS: Bilirubin Negative (Negative); Blood, Urine Negative (Negative); Glucose, Urine (Dipstick) Negative (Negative); Ketone, Urine Negative (Negative); Nitrite Negative (Negative); Protein, Urine (Dipstick) Negative (Neg-Trace); Urobilinogen 0.2 mg/dL (0.2-1.0)
[2017-02-24 14:27] LABS: #Eosinphils 0.1 thou/uL (0.0-0.7); #Lymphocytes 1.5 thou/uL (1.20-3.40); #Monocytes 0.3 thou/uL (0.11-0.59); #Neutrophils 2.7 thou/uL (1.40-6.50); %Basophils 0.8 % (0.0-1.0); %Eosinophils 2.7 % (0.0-10.0); %Lymphocytes 32.2 % (21.0-51.0); %Monocytes 7.1 % (0.0-10.0); Bacteria/HPF None Seen HPF (None Seen); Hematocrit 38.3 % (36.0-47.0); Hyaline Casts/LPF 0-3 HYALINE CAST LPF (0-3 Hyaline); Mean Platelet Volume 6.6 fL (7.4-10.4); RBC/HPF 0-3 HPF (0-3); Red Blood Cell (RBC) Count 3.77 mill/uL (4.20-5.40); Squamous Epithelial 0-3 HPF (0-3); WBC/HPF None Seen HPF (0-3); White Blood Cell (WBC) Count 4.6 thou/uL (4.8-10.8)
[2017-02-24 14:41] LABS: PTT 26.2 SEC (22.9-36.1); Prothrombin Time 12.8 SEC (12.0-14.7)
[2017-02-24 14:49] LABS: Anion Gap 13 mmol/L (10-20); BUN (Urea Nitrogen) 14 mg/dL (9.8-20.1); Calc. Creatinine Clearance 0 mL/min (70-130); Calcium 9.3 mg/dL (7.8-10.44); Carbon Dioxide 26 mmol/L (23-31); Chloride 106 mmol/L (98-107); Estimated GFR-MDRD 79
--- NOTE | 2017-02-24 16:03 | RAD ---
TWO VIEWS CHEST: History: Pre-operative evaluation. FINDINGS: The lungs are clear. No infiltrates seen. Heart and mediastinum unremarkable. Slight scoliotic curvat ure of the spine to the right. Mild degenerative spine changes. IMPRESSION: No acute lung process. POS: [facility]
== END 2017-02-24 13:09 | disposition home or self-care (01) ==
LOC: LABBT 13:08
PROVIDERS: ATTEND Orthopaedic Surgery
DX: Z01.818 Encounter for other preprocedural examination (principal); T84.093D Other mechanical complication of internal left knee prosthesis, subsequent encounter
CPT/HCPCS: 71020; 80048; 81001; 85025; 85610; 85730; 86850; 86900; 86901; 87081; 93005; 93010

== ENCOUNTER 2017-02-24 13:09 | Outpatient (CLI) | payer MEDICARE | END 2017-02-24 13:10 | disposition home or self-care (01) | LOC: LABBT 13:09 | PROVIDERS: ATTEND Orthopaedic Surgery | DX: Z01.818 Encounter for other preprocedural examination (principal); T84.093D Other mechanical complication of internal left knee prosthesis, subsequent encounter ==

== ENCOUNTER 2019-02-06 04:26 | Emergency (ER) | payer MEDICARE ==
[2019-02-06 05:34] LABS: #Basophils 0.1 thou/uL (0.0-0.2); #Lymphocytes 1.4 thou/uL (1.20-3.40); #Monocytes 0.4 thou/uL (0.11-0.59); #Neutrophils 4.1 thou/uL (1.40-6.50); %Basophils 0.9 % (0.0-1.0); %Eosinophils 0.7 % (0.0-10.0); %Lymphocytes 23.2 % (21.0-51.0); %Monocytes 6.4 % (0.0-10.0); %Neutrophils 68.9 % (42.0-75.0); Hemoglobin 12.5 g/dL (12.0-16.0); Mean Corpuscular HGB CONC 33.6 g/dL (32.0-36.0); Mean Corpuscular Volume 98.2 fL (78.0-98.0); Mean Platelet Volume 6.5 fL (7.4-10.4); Platelet Count 236 thou/uL (130-400); Red Blood Cell (RBC) Count 3.78 mill/uL (4.20-5.40); White Blood Cell (WBC) Count 5.9 thou/uL (4.8-10.8)
[2019-02-06 05:41] LABS: PTT 28.5 SEC (22.9-36.1); Prothrombin Time 13.3 SEC (12.0-14.7)
[2019-02-06 05:47] LABS: Anion Gap 15 mmol/L (10-20); BUN (Urea Nitrogen) 10 mg/dL (9.8-20.1); Calc. Creatinine Clearance 0 mL/min (70-130); Calcium 9.5 mg/dL (7.8-10.44); Carbon Dioxide 24 mmol/L (23-31); Chloride 107 mmol/L (98-107); Estimated GFR-MDRD 74; Glucose 105 mg/dL (83-110); Potassium 3.8 mmol/L (3.5-5.1); Sodium 142 mmol/L (136-145)
--- NOTE | 2019-02-06 07:19 | CT ---
PRELIMINARY REPORT/[facility]/EMERGENCY AFTER HOURS PROCEDURE PROCEDURE INFORMATION: Exam: CT Head Without Contrast Exam date and time: 02/06/2019 6:00 AM Clinical history: 83 years old, female; Patient HX: PT here with right > left paraspinal neck pain an d spasms, which have been occurring since she awoke Thursday morning. Saw her chiropractor Thursday "but all he could do was massage it" - no pain relief. Has tried Tylenol without relief. Had a single t#3 from prior surgery which she tried, which helped "a little. " No extremity numbness, weakness, or paresthesia. No fever, cough, uri, or gi symptoms. She describes the pain as "waves" which occur frequently and are sharp, just behind her right ear. No injury, fall, or known trauma. Rotating head to the right makes the pain worse; She states nothing relieves it. No similar pain in the past. No acute change prompted her visit. She notes that she is concerned because her mother had a stroke at her age. TECHNIQUE: Imaging protocol: Computed tomography of the head without contrast. COMPARISON: No relevant prior studies available. FINDINGS: Brain: Exam is moderately degraded by motion artifact. No acute hemorrhage. No large arterial territorial infarct. No mass effect or midline shift. Whitte matter hypodensities are nonspecific but may be seen in small vessel chronic ischemic changes. Ventricles: No ventriculomegaly. Bones/joints: No acute fracture. Sinuses: Visualized sinuses are unremarkable. No fluid levels. Mastoid air cells: Visualized mastoid air cells are well aerated. Soft tissues: Unremarkable. IMPRESSION: No acute intracranial abnormality. Thank you for allowing us to participate in the care of your patient. Dictated and Authenticated by: Pily Lam MD 02/06/2019 6:22 AM Central Time ([place] & [place]) FINAL REPORT BY DR. FAY EMERGENCY AFTER HOURS STUDY CT BRAIN NONCONTRAST: DATE: 02/06/2019 HISTORY: 83-year-old female with headache. FINDINGS: There is no evidence of acute intra-axial or extra-axial hemorrhage. There is no midline shift or any other mass effect. There is no extra-axial fluid collection. There is no evidence of obstructive hydrocephalus. Calvarium is intact. Agree with preliminary report by [facility]. IMPRESSION: No acute intracranial findings. Transcribed Date/Time: 02/06/2019 7:28 AM
--- NOTE | 2019-02-06 07:57 | RAD ---
RADIOGRAPH CHEST 1 VIEW: DATE: 02/06/2019 HISTORY: 83-year-old female with chest pain FINDINGS: There are no airspace densities, pulmonary edema, pneumothorax, or cardiomegaly. The lateral costophr enic angles are sharp. IMPRESSION: No acute cardiopulmonary findings.
--- NOTE | 2019-02-06 10:33 | CT ---
PRELIMINARY REPORT/[facility]/EMERGENCY AFTER HOURS PROCEDURE PROCEDURE INFORMATION: Exam: CT Angiography Neck With Contrast Exam date and time: 02/06/2019 6:04 AM Clinical history: 83 years old, female; Headache; Patient HX: PT here with right > left paraspinal neck pain and spasms, which have been occurring since she awoke Thursday morning. Saw her chiropractor Thursday "but all he could do was massage it" - no pain relief. Has tried tylenol without relief. Had a single t#3 from prior surgery which she tried, which helped "a little. " no extremity numbness, weakness, or paresthesia. No fever, cough, uri, or gi symptoms. She describes the pain as "waves" which occur frequently and are sharp, just behind her right ear. No injury, fall, or known trauma. Rotating head to the right makes the pain worse; She states nothing relieves it. No similar pain in the past. No acute change prompted her visit. She notes that she is concerned because her mother had a stroke at her age. TECHNIQUE: Imaging protocol: Computed tomography angiography of the neck with intravenous contrast. 3D rendering: MIP reconstructed images were created and reviewed. Contrast material: [id number]; Contrast volume: 85 ml; Contrast route: IV; COMPARISON: No relevant prior studies available. FINDINGS: VASCULATURE: Right common carotid artery: No stenosis. No dissection or occlusion. Right internal carotid artery: Unremarkable extracranial segment. No stenosis. No dissection or occlusion. Right external carotid artery: No occlusion or stenosis of the origin. Right vertebral artery: No stenosis. No dissection or occlusion. Left common carotid artery: No stenosis. No dissection or occlusion. Left internal carotid artery: Unremarkable extracranial segment. No stenosis. No dissection or occlusion. Left external carotid artery: No occlusion or stenosis of the origin. Left vertebral artery: No stenosis. No dissection or occlusion. NECK: Bones/joints: No acute fracture. Soft tissues: No significant soft tissue swelling. IMPRESSION: No acute findings. COMMENT: Reference per NASCET criteria for degree of stenosis: Mild: less than 50% stenosis. Moderate: 50- 69% stenosis. Severe: 70-94% stenosis. Near occlusion: 95-99% stenosis. Thank you for allowing us to participate in the care of your patient. Dictated and Authenticated by: Pily Lam MD 02/06/2019 6:26 AM Central Time ([place] & [place]) FINAL REPORT BY DR. FAY EMERGENCY AFTER HOURS STUDY CT ANGIOGRAM NECK WITH CONTRAST: DATE: 02/06/2019 HISTORY: 83-year-old female with acute onset nontraumatic right neck pain. TECHNIQUE: After IV contrast injection, arterial bolus chasing technique scan performed from aortic arch to skul l base Coronal and sagittal 3-D MIP reconstructions. FINDINGS: No high-grade stenosis, occlusion, dissection, or any calcified plaque, involving major arteries of n ronnie. Agree with preliminary report by [facility]. IMPRESSION: Negative. Transcribed Date/Time: 02/06/2019 10:42 AM
== END 2019-02-06 07:13 | disposition home or self-care (01) ==
LOC: SCSER 04:26
DX: S13.4XXA Sprain of ligaments of cervical spine, initial encounter (principal); K21.9 Gastro-esophageal reflux disease without esophagitis; F41.9 Anxiety disorder, unspecified; E03.9 Hypothyroidism, unspecified; X58.XXXA Exposure to other specified factors, initial encounter
CPT/HCPCS: 36415; 70450; 70498; 71045; 80048; 84484; 85025; 85610; 85730; 93005

== ENCOUNTER 2019-05-04 07:41 | Outpatient (CLI) | payer MEDICARE ==
--- NOTE | 2019-05-04 08:24 | ULT ---
Sonogram right upper quadrant HISTORY: Right upper quadrant pain. Nausea. FINDINGS: The gallbladder has a normal appearance. Common duct is 0.4 cm. Liver has a normal appearan ce without focal mass or intrahepatic biliary dilatation. No free fluid. IMPRESSION: Normal exam.
== END 2019-05-04 07:42 | disposition home or self-care (01) ==
LOC: SCSULT 07:41
PROVIDERS: ATTEND Physician Assistant Medical
DX: R10.11 Right upper quadrant pain (principal); R11.0 Nausea; R19.4 Change in bowel habit
CPT/HCPCS: 76705

== ENCOUNTER 2019-05-17 07:30 | Outpatient (CLI) | payer MEDICARE ==
--- NOTE | 2019-05-17 09:18 | CT ---
CT abdomen and pelvis with IV and oral contrast HISTORY: Abdomen pain. Change in bowel habits. Nausea. FINDINGS: Mild parenchymal scarring at the left anterolateral lung base. Bilateral breast implants pa rtially visualized. A 0.7 cm cyst is present at the far inferior margin of the lateral segment left liver lobe. No solid masses are evident. A 0.7 cm low-density lesion of the right adrenal gland is to o small to confidently characterize. The low-density suggests that this is an adenoma. Mild parenchymal scarring along the lateral cortex of the left kidney. Nonenlarged, nonspecific lymph node s throughout the retroperitoneum. No evidence of bowel obstruction or inflammation. Urinary bladder has a normal appearance. Prominent degenerative changes throughout the lumbar spine with leftward convex rotatory scoliotic cu rvature. IMPRESSION: No acute abnormalities are demonstrated to explain abdominal pain or patient's symptoms. Incidental-type findings are as detailed above.
[2019-05-17] MEDS ORDERED: Iopamidol-370 76% 500 ML 1 ML ONE (12:39)
== END 2019-05-17 07:31 | disposition home or self-care (01) ==
LOC: BICCT 07:30
PROVIDERS: ATTEND Physician Assistant Medical
DX: R10.84 Generalized abdominal pain (principal); R19.4 Change in bowel habit; R11.0 Nausea; Z98.82 Breast implant status; K76.89 Other specified diseases of liver; M47.816 Spondylosis without myelopathy or radiculopathy, lumbar region; M41.9 Scoliosis, unspecified
CPT/HCPCS: 74177; 82565; Q9967

== ENCOUNTER 2020-03-24 11:25 | Emergency (ER) | payer MEDICARE | END 2020-03-24 12:47 | disposition home or self-care (01) | LOC: ERS 11:25 | DX: M43.6 Torticollis (principal); E03.9 Hypothyroidism, unspecified; K21.9 Gastro-esophageal reflux disease without esophagitis | CPT/HCPCS: 99283 ==

== ENCOUNTER 2020-03-25 07:29 | Emergency (ER) | payer MEDICARE ==
[2020-03-25] MEDS ORDERED: Diazepam 5 MG TAB ONE (08:21)
[2020-03-25] MEDS ORDERED: Ketorolac Tromethamine 30 MG/ML VIAL ONE (08:21)
[2020-03-25 08:39] LABS: #Eosinphils 0.1 thou/uL (0.0-0.7); #Monocytes 0.7 thou/uL (0.11-0.59); #Neutrophils 4.8 thou/uL (1.40-6.50); %Basophils 0.6 % (0.0-1.0); %Eosinophils 0.9 % (0.0-10.0); %Lymphocytes 15.4 % (21.0-51.0); %Monocytes 10.4 % (0.0-10.0); %Neutrophils 72.7 % (42.0-75.0); Hemoglobin 13.1 g/dL (12.0-16.0); Mean Corpuscular HGB CONC 33.6 g/dL (32.0-36.0); Mean Corpuscular Hemoglobin 34.5 pg (27.0-31.0); Mean Platelet Volume 6.7 fL (7.4-10.4); Platelet Count 239 thou/uL (130-400); RBC Distribution Width 11.5 % (11.5-14.5); Red Blood Cell (RBC) Count 3.79 mill/uL (4.20-5.40); White Blood Cell (WBC) Count 6.6 thou/uL (4.8-10.8)
[2020-03-25 08:52] LABS: AST (SGOT) 21 U/L (5-34); Albumin 3.8 g/dL (3.4-4.8); Alkaline Phosphatase 89 U/L (40-110); Anion Gap 11 mmol/L (10-20); BUN (Urea Nitrogen) 9 mg/dL (9.8-20.1); Bilirubin, Total 0.7 mg/dL (0.2-1.2); Calc. Creatinine Clearance 0 mL/min (70-130); Calcium 8.7 mg/dL (7.8-10.44); Carbon Dioxide 28 mmol/L (23-31); Chloride 105 mmol/L (98-107); Globulin 2.9 g/dL (2.4-3.5); Glucose 116 mg/dL (83-110); Potassium 3.8 mmol/L (3.5-5.1); Protein, Total 6.7 g/dL (6.0-8.3); Sodium 140 mmol/L (136-145)
[2020-03-25 09:18] LABS: ALT (SGPT) 18 U/L (8-55)
[2020-03-25] MEDS ORDERED: Iopamidol-370 76% 500 ML 1 ML ONE (09:32)
--- NOTE | 2020-03-25 10:03 | RAD ---
EXAM: XR Cerv Sp Ap Lat STANDARD DATE: 03/25/2020 9:45 AM INDICATION: History of neck pain without injury COMPARISON: None. FINDING: There is moderate to severe disc degenerative disease at C5-6. There is moderate degenerati ve change at C4-5 and C6-7. There is moderate to severe facet osteoarthrosis at C3-4 C4-5 and C5-6. Lung apices are clear. Prevertebral soft tissues are normal appearing. No acute fracture is evident IMPRESSION:Moderate cervical spondylosis. No acute osseous abnormality.
--- NOTE | 2020-03-25 10:06 | RAD ---
Chest AP view INDICATION: Chest pain and COMPARISON: February 06, 2019 FINDINGS: Lungs: Chronic lung changes are stable Cardiac silhouette: Mild cardiomegaly is stable Pulmonary vasculature: Normal Pleural spaces: No pleural effusion or pneumothorax is demonstrated. Upper abdomen: No abnormality seen. Osseous structures: Thoracolumbar scoliosis and multilevel spondylosis is similar appearing. Additional findings: None. IMPRESSION: No acute cardiopulmonary abnormality.
--- NOTE | 2020-03-25 10:28 | CT ---
CTA Angio Chest W WO Con 03/25/2020 9:55 AM Indication: History of chest pain and neck pain and elevated d-dimer Technique: Multiple CTA images were obtained of the thorax with IV contrast. 3-D rendering: MIP mel nstructed images were created and reviewed. Comparison: No relevant prior studies available. Findings: Pulmonary arteries: No central or segmental pulmonary embolus is evident. Heart and Aorta: Normal appearing. Mediastinum:Normal appearing. No enlarged lymph nodes. Lungs:There are areas of subsegmental volume loss within both lower lobes. There are areas of periphe ral interstitial fibrosis seen within both lungs with areas of peripheral bronchiectasis. Pleural space: Clear. Upper Abdomen: No acute abnormality. Osseous Structures: There is thoracolumbar scoliosis. There is a remote-appearing wedge compression fracture of T12. This is stable to a comparison of the abdomen and pelvis dated May 17, 2019. There is scattered degenerative and osteoarthritic change present. Soft tissues:No abnormality. Other findings:None. Impression: No central or segmental pulmonary embolus. Findings suspicious for mild interstitial lung disease with peripheral interstitial fibrosis and mild peripheral bronchiectasis. Chronic T12 wedge compression fracture.
== END 2020-03-25 10:51 | disposition home or self-care (01) ==
LOC: ERS 07:29
DX: M62.838 Other muscle spasm (principal); J84.9 Interstitial pulmonary disease, unspecified; E03.9 Hypothyroidism, unspecified; K21.9 Gastro-esophageal reflux disease without esophagitis; M47.812 Spondylosis without myelopathy or radiculopathy, cervical region; Z79.899 Other long term (current) drug therapy
CPT/HCPCS: 36415; 71045; 71275; 72040; 80053; 84484; 85025; 85379; 93005; 96374; J1885; Q9967

== ENCOUNTER 2020-08-18 00:04 | Emergency (ER) | payer MEDICARE ==
[2020-08-18 00:43] LABS: #Basophils 0.1 thou/uL (0.0-0.2); #Eosinphils 0.2 thou/uL (0.0-0.7); #Monocytes 0.6 thou/uL (0.11-0.59); #Neutrophils 2.7 thou/uL (1.40-6.50); %Basophils 2.2 % (0.0-1.0); %Lymphocytes 35.7 % (21.0-51.0); %Monocytes 10.8 % (0.0-10.0); %Neutrophils 47.2 % (42.0-75.0); Hemoglobin 12.9 g/dL (12.0-16.0); Mean Corpuscular HGB CONC 34.1 g/dL (32.0-36.0); Mean Platelet Volume 6.7 fL (7.4-10.4); Platelet Count 226 thou/uL (130-400); RBC Distribution Width 12.5 % (11.5-14.5); Red Blood Cell (RBC) Count 3.67 mill/uL (4.20-5.40); White Blood Cell (WBC) Count 5.7 thou/uL (4.8-10.8)
[2020-08-18 01:07] LABS: ALT (SGPT) 17 U/L (8-55); AST (SGOT) 34 U/L (5-34); Albumin 3.9 g/dL (3.4-4.8); Alkaline Phosphatase 85 U/L (40-110); Anion Gap 17 mmol/L (10-20); BUN (Urea Nitrogen) 14 mg/dL (9.8-20.1); Bilirubin, Total 0.2 mg/dL (0.2-1.2); Calc. Creatinine Clearance 0 mL/min (70-130); Calcium 9.3 mg/dL (7.8-10.44); Carbon Dioxide 21 mmol/L (23-31); Chloride 103 mmol/L (98-107); Globulin 2.6 g/dL (2.4-3.5); Glucose 106 mg/dL (83-110); Potassium 3.9 mmol/L (3.5-5.1); Protein, Total 6.5 g/dL (5.8-8.1); Sodium 137 mmol/L (136-145)
[2020-08-18 01:21] LABS: Acetaminophen Less than 6.0 mcg/mL (10.0-30.0); Alcohol 195 mg/dL (Less than 10); Salicylate Less than 8.0 mg/dL (15.0-30.0)
== END 2020-08-18 02:45 | disposition home or self-care (01) ==
LOC: ERS 00:04
DX: S09.90XA Unspecified injury of head, initial encounter (principal); F10.129 Alcohol abuse with intoxication, unspecified; E03.9 Hypothyroidism, unspecified; K21.9 Gastro-esophageal reflux disease without esophagitis; Z79.899 Other long term (current) drug therapy; W18.30XA Fall on same level, unspecified, initial encounter
CPT/HCPCS: 36415; 36416; 70450; 71045; 72125; 80053; 80307; 84484; 85025; 93005

== ENCOUNTER 2020-08-23 14:15 | Inpatient (IN) | payer MEDICARE ==
[2020-08-23 15:12] VITALS: BMI 23.9
[2020-08-28] MEDS ORDERED: Sodium Chloride 0.9% 100 ML ONE (09:28)
[2020-08-28] MEDS ORDERED: Vancomycin 1 GM/200 ML BAG ONE ×2 (09:28)
[2020-08-28] MEDS ORDERED: Tranexamic Acid 1,000 MG/10 ML VIAL ONE (09:28)
[2020-08-28] MEDS ORDERED: Fentanyl 100 MCG/2 ML VIAL ONE ×5 (10:18→14:34)
[2020-08-28] MEDS ORDERED: Fentanyl 100 MCG/2 ML VIAL IV PRN (10:59)
[2020-08-28] MEDS ORDERED: traMADol HCl 50 MG TAB PO PRN ×2 (11:00)
[2020-08-28] MEDS ORDERED: Ondansetron PF 4 MG/2 ML Vial IVP PRN ×3 (11:00→14:30)
[2020-08-28] MEDS ORDERED: HYDROcodone/Acetaminophen 10/325 mg Tablet PO PRN ×2 (11:00)
[2020-08-28] MEDS ORDERED: Promethazine HCl 25 MG/ML VIAL IM PRN ×3 (11:00→12:29)
[2020-08-28] MEDS ORDERED: Zolpidem Tartrate 5 MG TAB PO PRN ×2 (11:00→11:38)
[2020-08-28] MEDS ORDERED: Ropivacaine HCl/PF 250 ML in Premix Bag 1 BAG NERVE BLCK SCH (11:00)
[2020-08-28] MEDS ORDERED: diphenhydrAMINE 25 MG CAP PO PRN ×2 (11:38→14:30)
[2020-08-28] MEDS ORDERED: Acetaminophen 325 MG TAB PO PRN (11:38)
[2020-08-28] MEDS ORDERED: Dexamethasone 20 MG/5 ML VIAL ONE (11:54)
[2020-08-28] MEDS ORDERED: Lidocaine 1% PF 5 ML VIAL ONE (11:54)
[2020-08-28] MEDS ORDERED: PROPOFOL 200 MG/20 ML VIAL ONE (11:54)
[2020-08-28] MEDS ORDERED: Ondansetron PF 4 MG/2 ML Vial ONE (11:54)
[2020-08-28] MEDS ORDERED: Ropivacaine 0.5% HCl/PF (150 MG/30 ML VIAL) ONE (11:54)
[2020-08-28] MEDS ORDERED: Ropivacaine 2% HCl/PF (20 MG/10 ML VIAL) ONE (11:54)
[2020-08-28] MEDS ORDERED: ePHEDrine Sulfate 50 MG/10 ML VIAL ONE (11:54)
[2020-08-28] MEDS ORDERED: Ketorolac Tromethamine 30 MG/ML VIAL IVP SCH (12:00)
[2020-08-28] MEDS ORDERED: Promethazine HCl 25 MG/ML VIAL SLOW IVP PRN (12:29)
[2020-08-28] MEDS ORDERED: Meperidine HCl/PF 25 MG/ML VIAL SLOW IVP PRN (12:29)
[2020-08-28] MEDS ORDERED: PACU-Morphine 4MG/ML VIAL SLOW IVP PRN (12:29)
[2020-08-28] MEDS ORDERED: Ketorolac Tromethamine 30 MG/ML VIAL ONE (13:54)
[2020-08-28] MEDS ORDERED: Bupivacaine 0.5% 10 ML VIAL ONE (13:57)
[2020-08-28] MEDS ORDERED: diphenhydrAMINE 50 MG/ML VIAL IM/IV PRN (14:30)
[2020-08-28] MEDS ORDERED: Morphine Sulfate 100 MG in Dextrose 5% in Water 98 ML IV SCH (14:30)
[2020-08-28] MEDS ORDERED: Naloxone HCl 0.4 mg/ml Vial IV PRN (14:30)
[2020-08-28] MEDS: Sodium Chloride 0.9% 1,000 ML IV SCH ×2 (17:58→21:36)
[2020-08-28] MEDS ORDERED: CEFAZOLIN 2 GM in Premix Bag 1 BAG IVPB SCH (18:00)
[2020-08-28] MEDS: CEFAZOLIN 2 GM in Premix Bag 1 BAG IVPB SCH (21:25)
[2020-08-28] MEDS: Aspirin 81 mg Enteric Coated Tablet PO SCH (21:26)
[2020-08-28] MEDS: Ketorolac Tromethamine 30 MG/ML VIAL IVP SCH (21:26)
[2020-08-28] MEDS: Montelukast Sodium 10 mg Tablet PO SCH (21:26)
[2020-08-29] MEDS: Ketorolac Tromethamine 30 MG/ML VIAL IVP SCH ×4 (03:06→20:38)
[2020-08-29] MEDS: CEFAZOLIN 2 GM in Premix Bag 1 BAG IVPB SCH (03:07)
[2020-08-29] MEDS: Levothyroxine Sodium 50 MCG TAB PO SCH (05:29)
[2020-08-29] MEDS: Sodium Chloride 0.9% 1,000 ML IV SCH ×2 (05:30→15:55)
[2020-08-29 06:14] LABS: Hemoglobin 11.6 g/dL (12.0-16.0); Mean Corpuscular HGB CONC 33.8 g/dL (32.0-36.0); Mean Corpuscular Hemoglobin 35.3 pg (27.0-31.0); Mean Platelet Volume 6.9 fL (7.4-10.4); Platelet Count 225 thou/uL (130-400); RBC Distribution Width 12.3 % (11.5-14.5); Red Blood Cell (RBC) Count 3.29 mill/uL (4.20-5.40); White Blood Cell (WBC) Count 8.2 thou/uL (4.8-10.8)
[2020-08-29] MEDS: Senokot S 8.6-50 MG TAB PO SCH ×2 (08:26→20:36)
[2020-08-29] MEDS: Magnesium Oxide 250 MG TAB PO SCH (08:27)
[2020-08-29] MEDS: Cholecalciferol 1,000 UNITS (25 MCG) TAB PO SCH (08:27)
[2020-08-29] MEDS: Ferrous Gluconate 324 MG TAB PO SCH ×2 (08:27→20:36)
[2020-08-29] MEDS: Cyanocobalamin (Vitamin B-12) 1,000 MCG TAB PO SCH (08:27)
[2020-08-29] MEDS: Aspirin 81 mg Enteric Coated Tablet PO SCH ×2 (08:27→20:36)
[2020-08-29] MEDS: Folic Acid 1 MG TAB PO SCH (08:27)
[2020-08-29] MEDS: Multivitamin W/ Minerals 1 TAB PO SCH (08:28)
[2020-08-29] MEDS: Hydrochlorothiazide 25 MG TAB PO SCH (08:28)
[2020-08-29] MEDS ORDERED: Multivitamin W/ Minerals 1 TAB PO SCH (09:00)
[2020-08-29] MEDS: Acetaminophen 325 MG TAB PO SCH ×3 (12:42→20:37)
[2020-08-29] MEDS: Montelukast Sodium 10 mg Tablet PO SCH (20:37)
[2020-08-30] MEDS: Ketorolac Tromethamine 30 MG/ML VIAL IVP SCH ×2 (01:06→08:20)
[2020-08-30] MEDS: Acetaminophen 325 MG TAB PO SCH ×3 (01:09→08:58)
[2020-08-30] MEDS: Sodium Chloride 0.9% 1,000 ML IV SCH ×2 (04:23→08:58)
[2020-08-30] MEDS: Levothyroxine Sodium 50 MCG TAB PO SCH (06:06)
[2020-08-30] MEDS ORDERED: HYDROcodone/Acetaminophen 10/325 mg Tablet PO PRN ×2 (07:15)
[2020-08-30] MEDS: Ferrous Gluconate 324 MG TAB PO SCH (08:21)
[2020-08-30] MEDS: Senokot S 8.6-50 MG TAB PO SCH (08:21)
[2020-08-30] MEDS: Cyanocobalamin (Vitamin B-12) 1,000 MCG TAB PO SCH (08:21)
[2020-08-30] MEDS: Aspirin 81 mg Enteric Coated Tablet PO SCH (08:21)
[2020-08-30] MEDS: Cholecalciferol 1,000 UNITS (25 MCG) TAB PO SCH (08:21)
[2020-08-30] MEDS: Multivitamin W/ Minerals 1 TAB PO SCH (08:21)
[2020-08-30] MEDS: Folic Acid 1 MG TAB PO SCH (08:21)
[2020-08-30] MEDS: Magnesium Oxide 250 MG TAB PO SCH (08:21)
[2020-08-30] MEDS: Hydrochlorothiazide 25 MG TAB PO SCH (08:22)
[2020-08-30] MEDS ORDERED: Loratadine 10 MG TAB PO SCH (09:00)
[2020-08-30 11:22] VITALS: BP 121/69; TEMP 98.4
== END 2020-08-30 11:30 | disposition home or self-care (01) | DRG 470 ==
LOC: SDC 08-28 09:05 → SURG A 08-28 09:13 → EDSTATUS 08-28 14:15 → SJJU 08-28 16:10
PROVIDERS: ADMIT Orthopaedic Surgery; ATTEND Orthopaedic Surgery
PROC: 0SRC0J9 Replacement of Right Knee Joint with Synthetic Substitute, Cemented, Open Approach (ICD-10-PCS; principal; 2020-08-28)
DX: M17.11 Unilateral primary osteoarthritis, right knee (principal); K21.9 Gastro-esophageal reflux disease without esophagitis; E03.9 Hypothyroidism, unspecified; E78.5 Hyperlipidemia, unspecified; M85.80 Other specified disorders of bone density and structure, unspecified site; M41.9 Scoliosis, unspecified; S83.282A Other tear of lateral meniscus, current injury, left knee, initial encounter; S83.241A Other tear of medial meniscus, current injury, right knee, initial encounter; X58.XXXA Exposure to other specified factors, initial encounter; Z96.652 Presence of left artificial knee joint; Z88.2 Allergy status to sulfonamides; Z88.5 Allergy status to narcotic agent; Z90.710 Acquired absence of both cervix and uterus; Z98.890 Other specified postprocedural states; Z95.1 Presence of aortocoronary bypass graft; Z87.442 Personal history of urinary calculi; Z79.899 Other long term (current) drug therapy
CPT/HCPCS: 36415; 85027; C1713; C1776; J0690; J1100; J1200; J1885; J2270; J2405; J2704; J2795; J3010; J3370; J3490; J7070; Q0163

== ENCOUNTER 2020-08-23 14:19 | Outpatient (CLI) | payer MEDICARE ==
[2020-08-23 15:28] LABS: Bilirubin Neg (Negative); Blood, Urine Negative (Negative); Clarity Clear (Clear); Glucose, Urine (Dipstick) Normal (Negative); Ketone, Urine Negative (Negative); Leukocyte Negative (Negative); Nitrite Negative (Negative); Protein, Urine (Dipstick) Negative (Neg-Trace); Urobilinogen Normal mg/dL (Less than 2)
[2020-08-23 15:48] LABS: Anion Gap 13 mmol/L (10-20); BUN (Urea Nitrogen) 16 mg/dL (9.8-20.1); Calc. Creatinine Clearance 0 mL/min (70-130); Calcium 10.1 mg/dL (7.8-10.44); Carbon Dioxide 28 mmol/L (23-31); Chloride 104 mmol/L (98-107); Glucose 100 mg/dL (83-110); Sodium 141 mmol/L (136-145)
[2020-08-23 15:51] LABS: #Eosinphils 0.1 10x3/uL (0.0-0.5); #Monocytes 0.8 10x3/uL (0.0-1.1); #Neutrophils 4.3 10x3/uL (1.5-8.4); %Basophils 0.6 % (0.0-2.0); %Lymphocytes 24.2 % (18.0-47.0); %Monocytes 11.5 % (0.0-10.0); %Neutrophils 61.3 % (40.0-75.0); Hemoglobin 13.1 g/dL (12.0-15.5); Mean Corpuscular HGB CONC 33.2 g/dL (32.0-36.0); Mean Corpuscular Hemoglobin 33.6 pg (27.0-33.0); Mean Corpuscular Volume 101.3 fl (81.6-98.3); Mean Platelet Volume 9.6 fl (7.4-10.4); Platelet Count 258 10x3/uL (150-450); RBC Distribution Width 13.3 % (11.5-14.5)
[2020-08-23 16:11] LABS: RBC/HPF None Seen HPF (0-3)
[2020-08-23 17:25] LABS: INR-International Normal Ratio 0.9; Prothrombin Time 10.3 sec (9.5-12.1)
[2020-08-24 03:30] LABS: SARS-CoV-2 NAA Rapid Test Not Detected (NotDetected)
== END 2020-08-23 14:20 | disposition home or self-care (01) ==
LOC: LABBT 14:19
PROVIDERS: ATTEND Orthopaedic Surgery
DX: Z01.818 Encounter for other preprocedural examination (principal); M16.11 Unilateral primary osteoarthritis, right hip; Z20.822 Contact with and (suspected) exposure to COVID-19
CPT/HCPCS: 80048; 81001; 85025; 85610; 87081; U0003; U0005; 87635; U0002

== ENCOUNTER 2020-10-16 13:17 | Emergency (ER) | payer MEDICARE | END 2020-10-16 14:33 | disposition left against medical advice (07) | LOC: ERS 13:17 | DX: Z53.21 Procedure and treatment not carried out due to patient leaving prior to being seen by health care provider (principal) ==

== ENCOUNTER 2020-12-04 12:33 | Outpatient (CLI) | payer MEDICARE | END 2020-12-04 12:34 | disposition home or self-care (01) | LOC: BICULT 12:33 | PROVIDERS: ATTEND Orthopaedic Surgery | DX: R22.41 Localized swelling, mass and lump, right lower limb (principal) ==

== ENCOUNTER 2021-06-14 10:05 | Day surgery (SDC) | payer OTHER, SELFPAY ==
[2021-06-11 11:34] VITALS: BMI 22.1
[~2021-06-14 10:05] MED LIST: Bupivacaine 0.25% 10 ML VIAL ONE; EPINEPHrine 1 MG/ML AMP ONE; Gentamicin 80 MG/2 ML VIAL ONE
[2021-06-14] MEDS ORDERED: Neomycin-Polymyxin 1 ML AMP ONE (10:10)
[2021-06-14] MEDS ORDERED: Fentanyl 100 MCG/2 ML VIAL ONE ×2 (10:35→13:36)
[2021-06-14] MEDS ORDERED: Dexmedetomidine 200 MCG/2 ML VIAL ONE (10:35)
[2021-06-14] MEDS ORDERED: Heparin 5,000 UNITS/ML VIAL ONE (10:41)
[2021-06-14] MEDS ORDERED: ceFAZolin 2 GM/Dextrose 50 ML IVPB ONE (11:04)
[2021-06-14] MEDS ORDERED: HYDROcodone/Acetaminophen 5/325 mg Tablet ONE (14:33)
[2021-06-14] MEDS ORDERED: traMADol HCl 50 MG TAB ONE (14:42)
== END 2021-06-14 15:08 | disposition home or self-care (01) ==
LOC: SDC 10:05
PROVIDERS: ATTEND Plastic Surgery
PROC: 0HPU0JZ Removal of Synthetic Substitute from Left Breast, Open Approach (ICD-10-PCS; principal; 2021-06-14)
PROC: 0HRV0JZ Replacement of Bilateral Breast with Synthetic Substitute, Open Approach (ICD-10-PCS; principal; 2021-06-14)
PROC: 0HPT0JZ Removal of Synthetic Substitute from Right Breast, Open Approach (ICD-10-PCS; principal; 2021-06-14)
DX: T85.41XA Breakdown (mechanical) of breast prosthesis and implant, initial encounter (principal); Z88.2 Allergy status to sulfonamides; Z88.5 Allergy status to narcotic agent
CPT/HCPCS: J0171; J0690; J1580; J1644; J3010; J3370; L8600; S0020

== ENCOUNTER 2021-08-09 12:37 | Outpatient (CLI) | payer MEDICARE | END 2021-08-09 12:38 | disposition home or self-care (01) | LOC: SCSMRI 12:37 | PROVIDERS: ATTEND Anesthesiology Pain Medicine | DX: S22.080G Wedge compression fracture of T11-T12 vertebra, subsequent encounter for fracture with delayed healing (principal); M51.36 Other intervertebral disc degeneration, lumbar region; M43.9 Deforming dorsopathy, unspecified; S32.019A Unspecified fracture of first lumbar vertebra, initial encounter for closed fracture; S32.049A Unspecified fracture of fourth lumbar vertebra, initial encounter for closed fracture; S32.059A Unspecified fracture of fifth lumbar vertebra, initial encounter for closed fracture; G95.19 Other vascular myelopathies | CPT/HCPCS: 72148 ==